=== PATIENT | female | born 1960 | race Caucasian/White ===

== ENCOUNTER 2017-09-23 23:06 | Emergency (ER) | payer OTHER ==
[~2017-09-23] VITALS: Ht 157.5 cm; Wt 56.7 kg
[2017-09-23 23:14] VITALS: Ht 157.5 cm; Wt 56.7 kg
[2017-09-24 02:33] VITALS: BP 95/57
== END 2017-09-24 02:33 | disposition home or self-care (01) ==
LOC: ED 23:06
DX: T78.1XXA Other adverse food reactions, not elsewhere classified, initial encounter (principal); X58.XXXA Exposure to other specified factors, initial encounter; Z90.710 Acquired absence of both cervix and uterus; Z88.2 Allergy status to sulfonamides; Z88.5 Allergy status to narcotic agent
CPT/HCPCS: J0171; J1200; J2930; J3490; J7030